=== PATIENT | female | born 1970 | race Two or more races ===

== ENCOUNTER 2021-06-02 09:43 | Emergency (ER) | payer OTHER ==
[~2021-06-02] VITALS: Ht 162.6 cm; Wt 89.4 kg
[2021-06-02] MEDS ORDERED: LOSARTAN-HCTZ1 EAC1 PO (13:09)
== END 2021-06-02 13:16 | disposition home or self-care (01) ==
LOC: ER 09:43
DX: I10 Essential (primary) hypertension (principal); Z88.6 Allergy status to analgesic agent

== ENCOUNTER 2021-06-26 08:01 | Outpatient (CLI) | payer OTHER ==
[~2021-06-26 08:01] MED LIST: LOSARTAN-HCTZ1 EAC1 PO
== END 2021-06-26 10:35 | disposition home or self-care (01) ==
LOC: LAB 08:01
PROVIDERS: ATTEND Internal Medicine
DX: N39.0 Urinary tract infection, site not specified (principal); E03.9 Hypothyroidism, unspecified; E78.5 Hyperlipidemia, unspecified; E11.9 Type 2 diabetes mellitus without complications; I10 Essential (primary) hypertension

== ENCOUNTER 2021-07-28 10:43 | Outpatient (CLI) | payer OTHER | END 2021-07-28 14:39 | disposition home or self-care (01) | LOC: LAB 10:43 | DX: M10.071 Idiopathic gout, right ankle and foot (principal) ==

== ENCOUNTER 2021-07-28 11:35 | Outpatient (CLI) | payer OTHER | END 2021-07-28 11:42 | disposition home or self-care (01) | LOC: RAD 11:35 | DX: M79.671 Pain in right foot (principal) ==

== ENCOUNTER 2021-08-06 08:21 | Outpatient (CLI) | payer OTHER | END 2021-08-06 08:29 | disposition home or self-care (01) | LOC: SONOGRAMA 08:21 | DX: M79.671 Pain in right foot (principal) ==

== ENCOUNTER 2022-03-28 08:05 | Outpatient (CLI) | payer OTHER | END 2022-03-28 08:06 | disposition home or self-care (01) | LOC: LAB 08:05 | PROVIDERS: ATTEND Family Medicine | DX: B34.9 Viral infection, unspecified (principal); N39.0 Urinary tract infection, site not specified; E11.9 Type 2 diabetes mellitus without complications; E03.9 Hypothyroidism, unspecified; E78.5 Hyperlipidemia, unspecified; M10.9 Gout, unspecified; M06.9 Rheumatoid arthritis, unspecified; Z12.11 Encounter for screening for malignant neoplasm of colon; N18.1 Chronic kidney disease, stage 1; E55.9 Vitamin D deficiency, unspecified ==

== ENCOUNTER 2022-03-28 08:36 | Outpatient (CLI) | payer OTHER | END 2022-03-28 08:37 | disposition home or self-care (01) | LOC: RAD 08:36 | PROVIDERS: ATTEND Family Medicine | DX: M54.50 Low back pain, unspecified (principal); M54.2 Cervicalgia; M51.15 Intervertebral disc disorders with radiculopathy, thoracolumbar region ==

== ENCOUNTER 2022-03-31 14:31 | Outpatient (CLI) | payer OTHER | END 2022-03-31 14:39 | disposition home or self-care (01) | LOC: MAMO-SONO 14:31 | PROVIDERS: ATTEND Family Medicine | DX: N64.4 Mastodynia (principal) ==

== ENCOUNTER 2022-04-13 13:20 | Outpatient (CLI) | payer OTHER | END 2022-04-13 13:23 | disposition home or self-care (01) | LOC: NUCLEAR 13:20 | PROVIDERS: ATTEND Obstetrics & Gynecology | DX: M81.0 Age-related osteoporosis without current pathological fracture (principal) ==

== ENCOUNTER 2024-01-05 07:18 | Outpatient (CLI) | payer OTHER ==
[2024-01-05 07:51] LABS: HEMATOCRIT 34.9 % (36.0-45.00); HEMOGLOBIN 12.2 g/dL (12.0-15.00); MEAN CELL VOLUME 83.8 fL (80.00-100.00); MEAN CORPUSCULAR HEMOGLOBIN 29.4 pg (27.00-32.0); MEAN CORPUSCULAR HGB CONC 35.1 g/dl (32.0-36.0); PLATELET COUNT 335 K/uL (150-450); RED BLOOD COUNT 4.16 M/uL (4.00-6.00)
[2024-01-05 08:09] LABS: URINE APPEARANCE Clear; URINE BILIRRUBIN Negative (NEGATIVE); URINE BLOOD Negative; URINE COLOR Yellow; URINE GLUCOSE Negative (NEGATIVE); URINE KETONE Negative (NEGATIVE); URINE LEUKOCYTE Negative; URINE NITRATE Negative; URINE PROTEIN Negative (NEGATIVE); URINE UROBILINOGEN 0.2 E.U./dl
[2024-01-05 08:15] LABS: URINE BACTERIA 105.7 uL (0.0-1933); URINE EPITHELIAL CELLS 4.9 uL (0.0-38.8); URINE RBC 6.8 uL (0.0-20.8); URINE WBC 3.5 uL (0.0-23.2)
[2024-01-05 09:10] LABS: ALBUMIN 3.6 gm/dL (3.4-5.0); BILIRUBIN TOTAL 0.4 mg/dL (0.3-1.2); C-REACTIVE PROTEIN 1.02 MG/DL (0.00-0.29); CALCIUM 8.7 mg/dL (8.5-10.1); CHOL HDL RATIO 2.6 (0-5.0); CREATININE SERUM 0.7 mg/dL (0.55-1.02); GFR 87.87; GLOBULINA 3.7 G/DL (2.4-3.5); POTASSIUM 4.27 mEq/L (3.5-5.1); TOTAL PROTEIN 7.3 gm/dL (6.4-8.2); TSH 1.56 uIU/mL (0.358-3.74)
== END 2024-01-05 11:45 | disposition home or self-care (01) ==
LOC: LAB 07:18
PROVIDERS: ATTEND Internal Medicine
DX: D64.9 Anemia, unspecified (principal); N39.0 Urinary tract infection, site not specified; R10.9 Unspecified abdominal pain; E03.9 Hypothyroidism, unspecified; E78.5 Hyperlipidemia, unspecified; E07.9 Disorder of thyroid, unspecified; E11.9 Type 2 diabetes mellitus without complications; R73.09 Other abnormal glucose; I10 Essential (primary) hypertension

== ENCOUNTER 2024-02-23 10:10 | Outpatient (CLI) | payer OTHER | END 2024-02-23 10:30 | disposition home or self-care (01) | LOC: MRI 10:10 | PROVIDERS: ATTEND Internal Medicine Rheumatology | DX: N64.4 Mastodynia (principal); Z12.31 Encounter for screening mammogram for malignant neoplasm of breast; N60.11 Diffuse cystic mastopathy of right breast; N60.12 Diffuse cystic mastopathy of left breast; M81.0 Age-related osteoporosis without current pathological fracture | CPT/HCPCS: 73721 ==

== ENCOUNTER 2024-05-17 12:42 | Outpatient (CLI) | payer OTHER | END 2024-05-17 12:49 | disposition home or self-care (01) | LOC: NUCLEAR 12:42 | PROVIDERS: ATTEND Internal Medicine Rheumatology | DX: M81.0 Age-related osteoporosis without current pathological fracture (principal) ==

== ENCOUNTER 2024-12-02 09:08 | Outpatient (CLI) | payer OTHER ==
[2024-12-02 10:04] LABS: URINE APPEARANCE Clear; URINE BILIRRUBIN Negative (NEGATIVE); URINE BLOOD Negative; URINE COLOR Yellow; URINE GLUCOSE Negative (NEGATIVE); URINE KETONE Negative (NEGATIVE); URINE LEUKOCYTE Negative; URINE NITRATE Negative; URINE PROTEIN Negative (NEGATIVE); URINE UROBILINOGEN 0.2 E.U./dl
[2024-12-02 10:09] LABS: URINE BACTERIA 21.5 uL (0.0-1933); URINE EPITHELIAL CELLS 2.9 uL (0.0-38.8); URINE RBC 9.9 uL (0.0-20.8); URINE WBC 4.9 uL (0.0-23.2)
[2024-12-02 10:12] LABS: BASO % 0.9 % (0.1-1.2); EOS # 0.38 (0.04-0.54); EOS % 6.5 % (0.7-7.0); LYMPH # 1.63 (1.18-3.74); LYMPH % 27.9 % (19.3-53.1); MEAN PLATELET VOLUME 9.30 fl (9.4-12.4); MONO # 0.39 (0.24-0.82); MONO % 6.7 % (4.7-12.5); NEUT # 3.38 (1.56-6.13); NEUT % 57.8 % (34.0-71.1); RED CELL DISTRIBUTION WIDTH 13.1 % (11.6-14.4)
[2024-12-02 10:25] LABS: URINE CAST 0.00 uL (0.0-1.40)
[2024-12-02 10:51] LABS: ALT/SGPT 24.0 U/L (12-78); AST/SGOT 15.0 U/L (15-37); BILIRUBIN TOTAL 0.32 mg/dL (0.3-1.2); BUN CREA RATIO 34.0 (7.0-25.0); CHOL HDL RATIO 2.5 (0-5.0); CREATININE SERUM 0.58 mg/dL (0.55-1.02); GFR 109.17; GLOBULINA 3.5 G/DL (2.4-3.5); GLUCOSE FASTING 93.0 mg/dL (65-100); HDL 62.0 mg/dl (40-60); LDL 89.0 mg/dl (0-130); OSMOLALITY SERUM 287.0 MOSM/KG (275-295); TSH 1.25 uIU/mL (0.358-3.74); VLDL 7.0 (0-39)
== END 2024-12-02 09:10 | disposition home or self-care (01) ==
LOC: LAB 09:08
PROVIDERS: ATTEND Internal Medicine
DX: D64.9 Anemia, unspecified (principal); N39.0 Urinary tract infection, site not specified; R10.9 Unspecified abdominal pain; E03.9 Hypothyroidism, unspecified; E78.5 Hyperlipidemia, unspecified; R07.9 Chest pain, unspecified; E11.9 Type 2 diabetes mellitus without complications; I10 Essential (primary) hypertension